=== PATIENT | female | born 1945 | race Caucasian/White ===

== ENCOUNTER → 2018-11-10 | Outpatient (CLI) | payer MEDICARE ==
--- NOTE | 2018-11-10 11:22 | BD ---
EXAMINATION TYPE: Axial Bone Density DATE OF EXAM: 11/10/2018 COMPARISON: NONE CLINICAL HISTORY: Z 78.0 Height: 62.5 Weight: 202 FRAX RISK QUESTIONS: Alcohol (3 or more units per day): no Family History (Parent hip fracture): no Glucocorticoids (More than 3mos): no (Ex: prednisone, prednisolone, methylprednisolone, dexamethasone, and hydrocortisone). History of Fracture in Adulthood: yes, toe Secondary Osteoporosis: 1. Type 1 Diabetes: no 2. Hyperthyroidism: no 3. Menopause before 45: no 4. Malnutrition: no 5. Chronic liver disease: no Rheumatoid Arthritis: no Current Tobacco Use: no RISK FACTORS HISTORY OF: Family History of Osteoporosis: not to knowledge of patient Active: yes Diet low in dairy products/other sources of calcium: no Postmenopausal woman: yes Take estrogen and/or progesterone medications: no Lost more than 2 inches in height since high school: no Frequent falls: no Poor Health: no Hyperparathyroidism: no Adrenal Insufficiency: no MEDICATIONS: Prednisone or other steroids: no Thyroid Medications: no Osteoporosis Medications: no Additional Medications: calcium Additional History: none to note EXAM MEASUREMENTS: Bone mineral densitometry was performed using the [employer] System. Bone mineral density as measured about the Lumbar spine is: ----- L1-L4(G/cm2): 1.077 T Score Values are as follows: ----- L2: -0.9 ----- L3: -0.7 ----- L4: -0.2 ----- L1-L4: -0.9 Bone mineral density not previously done at this facility; done elsewhere Bone mineral density about the R hip (g/cm2): 0.779 Bone mineral density about the L hip (g/cm2): 0.776 T Score values are as follows: -----R Neck: -1.9 -----L Neck: -1.9 -----R Total: -1.3 -----L Total: -0.8 Bone mineral density not previously done at this facility; done elsewhere IMPRESSION: Osteopenia (T Score between -2.5 and -1). There is slightly increased risk of fracture and the patient may be considered for treatment. Re-Screen 2-5 years. NOTE: T-SCORE=SD OF THE YOUNG ADULT MEAN.
--- NOTE | 2018-11-18 08:29 | MM ---
Reason for exam: screening (asymptomatic). Last mammogram was performed 1 year and 9 months ago. History: Patient is postmenopausal. Physical Findings: A clinical breast exam by your physician is recommended on an annual basis and results should be correlated with mammographic findings. MG Screening Mammo w CAD Bilateral CC and MLO view(s) were taken. Prior study comparison: February 09, 2017, mammogram, performed at [place]. November 08, 2015, mammogram, performed at [place]. The breast tissue is heterogeneously dense. This may lower the sensitivity of mammography. No suspicious abnormality. Stable left superior asymmetry at anterior depth on the left back to 2014. No significant changes when compared with prior studies. ASSESSMENT: Benign, BI-RAD 2 RECOMMENDATION: Routine screening mammogram of both breasts in 1 year.
== END | disposition home or self-care (01) ==
LOC: RADMAMWWP 09:07
PROVIDERS: ATTEND Family Medicine
DX: Z12.31 Encounter for screening mammogram for malignant neoplasm of breast (principal); M85.80 Other specified disorders of bone density and structure, unspecified site; Z78.0 Asymptomatic menopausal state
CPT/HCPCS: 77067; 77080

== ENCOUNTER → 2019-02-01 | Outpatient (CLI) | payer MEDICARE ==
--- NOTE | 2019-02-01 11:43 | XR ---
EXAMINATION TYPE: XR chest 2V DATE OF EXAM: 02/01/2019 COMPARISON: NONE HISTORY: Aspiration one week ago with wheeze. TECHNIQUE: Frontal and lateral views of the chest are obtained. FINDINGS: There is no focal air space opacity, pleural effusion, or pneumothorax seen. Some eventrat ion right hemidiaphragm. The cardiac silhouette size is mildly enlarged. The osseous structures are intact. Cholecystectomy clips noted on lateral view. IMPRESSION: Mild cardiomegaly without suspicious acute pulmonary process.
== END | disposition home or self-care (01) ==
LOC: RADXRMAIN 10:39
PROVIDERS: ATTEND Family Medicine
DX: I51.7 Cardiomegaly (principal)
CPT/HCPCS: 71046

== ENCOUNTER → 2019-05-29 | Outpatient (CLI) | payer MEDICARE | END | disposition home or self-care (01) | DX: R13.10 Dysphagia, unspecified (principal) | CPT/HCPCS: 74230 ==

== ENCOUNTER → 2019-09-12 | Day surgery (SDC) | payer MEDICARE ==
[2019-09-07 15:51] VITALS: BMI 36.6
[~2019-09-12] MED LIST: LACTATED RINGERS 1,000 ML IV ONE; LACTATED RINGERS 1,000 ML IV SCH; LIDOCAINE 1% (10MG/ML) FOR IV START INTRADERMA ONE; PROPOFOL 10 MG/ML 20 ML VIAL IV ONE
[2019-09-12 08:13] VITALS: TEMP 97.8
--- NOTE | 2019-09-12 09:13 | P.GSHP ---
History of Present Illness H&P Date: 09/12/19 Chief Complaint: Colon cancer screening Patient here today for colonoscopy. Last colonoscopy 8-10 years ago. History of lymphocytic colitis in the past. No bowel complaints currently. No family history of colon cancer. No history of polyps. Past Medical History Past Medical History: Hyperlipidemia, Osteoarthritis (OA) History of Any Multi-Drug Resistant Organisms: None Reported Past Surgical History: Cholecystectomy, Joint Replacement, Tonsillectomy Additional Past Surgical History / Comment(s): TOTAL RIGHT KNEE, Past Anesthesia/Blood Transfusion Reactions: No Reported Reaction Smoking Status: Former smoker - Past Family History Mother Family Medical History: No Reported History Medications and Allergies Home Medications Medication Instructions Recorded Confirmed Type Atorvastatin [Lipitor] 10 mg PO HS 09/07/19 09/07/19 History Calcium Carbonate/Vitamin D3 1 each PO DAILY 09/07/19 09/07/19 History [Calcium 600-D3 20Mcg(800 Unit)] Multivitamins, Thera [Multivitamin 1 tab PO DAILY 09/07/19 09/07/19 History (formulary)] Omeprazole Magnesium [PriLOSEC OTC] 20 mg PO 1830 09/07/19 09/07/19 History Turmeric Root Extract [Turmeric] 500 mg PO DAILY 09/07/19 09/07/19 History Allergies Allergy/AdvReac Type Severity Reaction Status Date / Time No Known Allergies Allergy Verified 09/07/19 15:33 Surgical - Exam Vital Signs Temp Pulse Resp BP Pulse Ox 97.8 F 78 18 165/80 97 09/12/19 08:12 09/12/19 08:12 09/12/19 08:12 09/12/19 08:12 09/12/19 08:12 Physical exam: General: Well-developed, well-nourished HEENT: Normocephalic, sclerae nonicteric Abdomen: Nontender, nondistended Extremities: No edema Neuro: Alert and oriented Assessment and Plan (1) Colon cancer screening Narrative/Plan: Will proceed with colonoscopy Current Visit: Yes Status: Acute Code(s): Z12.11 - ENCOUNTER FOR SCREENING FOR MALIGNANT NEOPLASM OF COLON SNOMED Code(s): 715406854
[2019-09-12 09:33] VITALS: RESP 16
--- NOTE | 2019-09-12 09:33 | P.PCN ---
Date of Procedure: 09/12/19 Procedure(s) Performed: PREOPERATIVE DIAGNOSIS: Colon cancer screening POSTOPERATIVE DIAGNOSIS: Normal exam PROCEDURE: Colonoscopy ANESTHESIA: MAC SURGEON: Bobby Robb M.D. SPECIMENS: None ENDOSCOPIC PROCEDURE: The patient was placed on the endoscopy table in the left decubitus position. The Olympus colonoscope was inserted into the anus and passed under direct visualization to the base of the cecum. The appendiceal orifice was visualized. From that point the scope was slowly withdrawn inspecti ng all surfaces carefully. There were no neoplastic inflammatory or polypoid lesions throughout the cecum, ascending, transverse, descending, sigmoid and rectum. There was no visible diverticulosis noted. Digital rectal examination was normal. The patient was taken to the recovery room in stable condition per anesthesia guidelines. RECOMMENDATIONS: Alejandro avalos. Follow-up colonoscopy 10 years.
[2019-09-12 09:43] VITALS: BP 131/84; PULSE 72
== END ==
LOC: ORWHC2ENDO 07:51
PROVIDERS: ATTEND Surgery
DX: Z12.11 Encounter for screening for malignant neoplasm of colon (principal); E78.5 Hyperlipidemia, unspecified; K21.9 Gastro-esophageal reflux disease without esophagitis; M19.90 Unspecified osteoarthritis, unspecified site; Z79.899 Other long term (current) drug therapy; Z96.651 Presence of right artificial knee joint; Z90.49 Acquired absence of other specified parts of digestive tract; Z90.89 Acquired absence of other organs; Z87.891 Personal history of nicotine dependence; Z87.19 Personal history of other diseases of the digestive system
CPT/HCPCS: J2704; G0121; 45380

== ENCOUNTER → 2019-11-28 | Outpatient (CLI) | payer MEDICARE ==
--- NOTE | 2019-11-29 11:50 | MM ---
Reason for exam: screening (asymptomatic). Last mammogram was performed 1 year and 1 month ago. History: Patient is postmenopausal. Physical Findings: A clinical breast exam by your physician is recommended on an annual basis and results should be correlated with mammographic findings. MG 3D Screening Mammo W/Cad Bilateral CC and MLO view(s) were taken. Prior study comparison: November 10, 2018, bilateral MG screening mammo w CAD. February 09, 2017, mammogram, performed at [place]. The breast tissue is heterogeneously dense. This may lower the sensitivity of mammography. There is chronic nodularity in the left breast. There is no discrete abnormality. ASSESSMENT: Benign, BI-RAD 2 RECOMMENDATION: Routine screening mammogram of both breasts in 1 year.
== END | disposition home or self-care (01) ==
LOC: RADMAMWWP 07:55
PROVIDERS: ATTEND Family Medicine
DX: Z12.31 Encounter for screening mammogram for malignant neoplasm of breast (principal)
CPT/HCPCS: 77063; 77067

== ENCOUNTER → 2020-12-02 | Outpatient (CLI) | payer MEDICARE ==
--- NOTE | 2020-12-02 12:44 | BD ---
EXAMINATION TYPE: Axial Bone Density DATE OF EXAM: 12/02/2020 COMPARISON: 11/10/2018 CLINICAL HISTORY: Height: 62.5 IN Weight: 198 LBS RISK FACTORS HISTORY OF: Active: YES Postmenopausal woman: AGE 47 Take estrogen and/or progesterone medications: NOT NOW TOOK FOR 15 YEARS MEDICATIONS: Additional Medications: CALCIUM, VIT D, ATORVASTATIN, OMEPRAZOLE EXAM MEASUREMENTS: Bone mineral densitometry was performed using the [employer]. Bone mineral density as measured about the Lumbar spine is: ----- L1-L4(G/cm2): 1.058 T Score Values are as follows: ----- L2: -1.3 ----- L3: -1.0 ----- L4: -0.5 ----- L1-L4: -1.0 Bone mineral density has: Decreased -3.5% since study of: 11/10/2018 Bone mineral density about the R hip (g/cm2): 0.752 Bone mineral density about the L hip (g/cm2): 0.803 T Score values are as follows: -----R Neck: -2.1 -----L Neck: -1.7 -----R Total: -1.3 -----L Total: -0.6 Bone mineral density has: Increased 1.3% since study of: 11/10/2018 IMPRESSION: Osteopenia right hip. NOTE: T-SCORE=SD OF THE YOUNG ADULT MEAN.
--- NOTE | 2020-12-03 09:54 | MM ---
Reason for exam: screening (asymptomatic). Last mammogram was performed 1 year ago. History: Patient is postmenopausal. Took hormonal contraceptives for 20 years. Took estrogen for 10 years. Physical Findings: A clinical breast exam by your physician is recommended on an annual basis and results should be correlated with mammographic findings. MG 3D Screening Mammo W/Cad Bilateral CC and MLO view(s) were taken. Prior study comparison: November 28, 2019, bilateral MG 3d screening mammo w/cad. November 10, 2018, bilateral MG screening mammo w CAD. February 09, 2017, mammogram, performed at [place]. There are scattered fibroglandular densities. There is chronic nodularity in the left breast. There is no discrete abnormality. Benign bilateral axillary lymph nodes redemonstrated. ASSESSMENT: Benign, BI-RAD 2 RECOMMENDATION: Routine screening mammogram of both breasts in 1 year.
== END | disposition home or self-care (01) ==
LOC: RADMAMWWP 09:37
PROVIDERS: ATTEND Family Medicine
DX: Z12.31 Encounter for screening mammogram for malignant neoplasm of breast (principal); M85.851 Other specified disorders of bone density and structure, right thigh; Z78.0 Asymptomatic menopausal state; Z79.3 Long term (current) use of hormonal contraceptives
CPT/HCPCS: 77063; 77067; 77080

== ENCOUNTER 2021-10-20 14:41 | Emergency (ER) | payer MEDICARE ==
[2021-10-20 14:47] VITALS: TEMP 98.4
[2021-10-20] MEDS ORDERED: SODIUM CHLORIDE 0.9% 1,000 ML IV STA (15:51)
[2021-10-20 16:21] LABS: Basophils % (A) 1 %; Eosinophils # (A) 0.2 k/uL (0-0.7); Eosinophils % (A) 5 %; HCT 41.7 % (34.0-46.0); Lymphocytes # (A) 0.7 k/uL (1.0-4.8); Lymphocytes % (A) 18 %; MCH 29.4 pg (25.0-35.0); MCHC 33.7 g/dL (31.0-37.0); MCV 87.1 fL (80.0-100.0); Mean Platelet Volume 7.6; Monocytes # (A) 0.3 k/uL (0-1.0); Monocytes % (A) 8 %; Neutrophils # (A) 2.7 k/uL (1.3-7.7); Neutrophils % (A) 65 %; Platelet Count 207 k/uL (150-450); RBC 4.78 m/uL (3.80-5.40); RDW 13.4 % (11.5-15.5); WBC 4.1 k/uL (3.8-10.6)
[2021-10-20 16:34] LABS: ALT 180 U/L (4-34); AST 123 U/L (14-36); African American GFR (CKD) >90 (>60 ml/min/1.73 sqM); Albumin 4.2 g/dL (3.5-5.0); Alkaline Phosphatase 184 U/L (38-126); Anion Gap 8 mmol/L; Blood Urea Nitrogen 18 mg/dL (7-17); Calcium 9.2 mg/dL (8.4-10.2); Carbon Dioxide 30 mmol/L (22-30); Chloride 100 mmol/L (98-107); Glucose 115 mg/dL (74-99); Magnesium 1.8 mg/dL (1.6-2.3); Non-African American GFR(CKD) 88 (>60 ml/min/1.73 sqM); Potassium 3.8 mmol/L (3.5-5.1); Sodium 138 mmol/L (137-145); Total Bilirubin 0.9 mg/dL (0.2-1.3); Total Protein 6.9 g/dL (6.3-8.2)
--- NOTE | 2021-10-20 17:02 | XR ---
EXAMINATION TYPE: XR chest 2V DATE OF EXAM: 10/20/2021 4:57 PM COMPARISON: Chest radiographs from 02/01/2019 TECHNIQUE: XR chest 2V Frontal and lateral views of the chest. CLINICAL INDICATION:Female, 76 years old with history of Shortness of breath, weakness; FINDINGS: Lungs/Pleura: There is no evidence of pleural effusion, focal consolidation, or pneumothorax. Pulmonary vascularity: Unremarkable. Heart/mediastinum: Cardiomediastinal silhouette is unremarkable. Musculoskeletal: No acute osseous pathology. IMPRESSION: No acute cardiopulmonary disease/process.
--- NOTE | 2021-10-20 17:12 | ED ---
SOB HPI - General Chief Complaint: Shortness of Breath Stated Complaint: SOB Time Seen by Provider: 10/20/21 15:03 Source: patient, RN notes reviewed Mode of arrival: ambulatory Limitations: no limitations - History of Present Illness Initial Comments: This is a 76-year-old female who presents to the emergency department for shortness of breath and generalized weakness. States that for approximately the last 3 days, she has been unable to move around without experiencing extreme fatigue or shortness of breath. Activity such as making the bed or washing strawberries are very difficult for her to do right now. She has also been experiencing night sweats but denies any fevers during the day. Denies any associated chest pain. Also states that she has had no appetite and had an unusual nonspecific abdominal pain last week. States that overall she has never had symptoms like this in the past. Denies any sick contacts. Denies any fevers, chills, sore throat, cough, chest pain, palpitations, abdominal pain, nausea, vomiting, diarrhea, back pain, or headaches. MD Complaint: shortness of breath Onset/Timin -: days(s) Treatments Prior to Arrival: none - Related Data Home Medications Medication Instructions Recorded Confirmed Atorvastatin [Lipitor] 10 mg PO HS 09/07/19 10/20/21 Multivitamins, Thera [Multivitamin 1 tab PO DAILY 09/07/19 10/20/21 (formulary)] Turmeric Root Extract [Turmeric] 500 mg PO DAILY 09/07/19 10/20/21 Calcium Carb/Mag Ox/Zinc Sulf 1 tab PO DAILY 10/20/21 10/20/21 [[id number] 334-134-5 mg Tab] Melatonin 3 mg PO HS 10/20/21 10/20/21 Omeprazole [PriLOSEC] 20 mg PO AC-SUPPER 10/20/21 10/20/21 Phentermine HCl 37.5 mg PO DIRECTED 10/20/21 10/20/21 Allergies Allergy/AdvReac Type Severity Reaction Status Date / Time No Known Allergies Allergy Verified 10/20/21 19:07 Review of Systems ROS Statement: Those systems with pertinent positive or pertinent negative responses have been documented in the HPI. ROS Other: All systems not noted in ROS Statement are negative. Past Medical History Past Medical History: Hyperlipidemia, Osteoarthritis (OA) History of Any Multi-Drug Resistant Organisms: None Reported Past Surgical History: Cholecystectomy, Joint Replacement, Tonsillectomy Additional Past Surgical History / Comment(s): TOTAL RIGHT KNEE, Past Anesthesia/Blood Transfusion Reactions: No Reported Reaction Past Psychological History: No Psychological Hx Reported Past Alcohol Use History: Daily Past Drug Use History: None Reported - Past Family History Mother Family Medical History: No Reported History General Exam Limitations: no limitations General appearance: alert, in no apparent distress Head exam: Present: atraumatic, normocephalic, normal inspection ENT exam: Present: normal exam, mucous membranes moist Neck exam: Present: normal inspection. Absent: tenderness, meningismus, lymphadenopathy Respiratory exam: Present: normal lung sounds bilaterally. Absent: respiratory distress, wheezes, rales, rhonchi, stridor Cardiovascular Exam: Present: regular rate, normal rhythm, normal heart sounds. Absent: systolic murmur, diastolic murmur, rubs, gallop, clicks GI/Abdominal exam: Present: soft, normal bowel sounds. Absent: distended, tenderness, guarding, rebound, rigid Extremities exam: Present: normal inspection, full ROM, normal capillary refill. Absent: tenderness, pedal edema, joint swelling, calf tenderness Neurological exam: Present: alert, oriented X3, CN II-XII intact Psychiatric exam: Present: normal affect, normal mood Skin exam: Present: warm, dry, intact, normal color. Absent: rash Course Vital Signs 10/20/21 10/20/21 10/20/21 14:43 17:33 19:38 Temperature 98.4 F 98.4 F Pulse Rate 99 96 77 Respiratory 18 18 17 Rate Blood Pressure 149/86 162/82 141/90 O2 Sat by Pulse 97 96 97 Oximetry Medical Decision Making - Medical Decision Making This is a 76-year-old female who presents to the emergency department for shortness of breath and fatigue. Chest x-ray revealed no acute cardiopulmonary process. Lab work does reveal a new onset transaminitis. Given the symptoms, a d-dimer was added on, which was found to be elevated at 7.45. Because she had some abnormal abdominal pain a few days ago, she has transaminitis, generalized fatigue, and shortness of breath, computed tomography scan of the abdomen and pelvis was obtained along with a CTA of the chest for PE. CTA of the chest and CT of the abdomen and pelvis both revealed no acute abnormalities. Discussed that she may have a virus causing inflammation to the liver, which can also contribute to an elevated d-dimer. At this point, the workup has not identified any other cause of her symptoms. Advised that she continue to remain well- hydrated and make sure that she eats to keep up her strength, even though she is not having much of an appetite. She will also need to follow up with her primary care provider this week to have her liver enzymes rechecked. Patient currently denies any pain when sitting in bed, and states that she feels stable for discharge home. Return precautions reviewed in depth, the patient is instructed to return to the emergency department with any new, worsening, or concerning symptoms. Patient verbalized understanding. This case was discussed in detail with the attending ED physician. Presentation, findings, and treatment plan discussed in detail as well. - Lab Data Result diagrams: 10/20/21 16:04 10/20/21 16:04 Lab Results 10/20/21 10/20/21 10/20/21 Range/Units 14:51 16:04 16:04 WBC 4.1 (3.8-10.6) k/uL RBC 4.78 (3.80-5.40) m/uL Hgb 14.0 (11.4-16.0) gm/dL Hct 41.7 (34.0-46.0) % MCV 87.1 (80.0-100.0) fL MCH 29.4 (25.0-35.0) pg MCHC 33.7 (31.0-37.0) g/dL RDW 13.4 (11.5-15.5) % Plt Count 207 (150-450) k/uL MPV 7.6 Neutrophils % 65 % Lymphocytes % 18 % Monocytes % 8 % Eosinophils % 5 % Basophils % 1 % Neutrophils # 2.7 (1.3-7.7) k/uL Lymphocytes # 0.7 L (1.0-4.8) k/uL Monocytes # 0.3 (0-1.0) k/uL Eosinophils # 0.2 (0-0.7) k/uL Basophils # 0.0 (0-0.2) k/uL D-Dimer (<0.60) mg/L FEU Sodium 138 (137-145) mmol/L Potassium 3.8 (3.5-5.1) mmol/L Chloride 100 (98-107) mmol/L Carbon Dioxide 30 (22-30) mmol/L Anion Gap 8 mmol/L BUN 18 H (7-17) mg/dL Creatinine 0.61 (0.52-1.04) mg/dL Est GFR (CKD-EPI)AfAm >90 (>60 ml/min/1.73 sqM) Est GFR (CKD-EPI)NonAf 88 (>60 ml/min/1.73 sqM) Glucose 115 H (74-99) mg/dL Calcium 9.2 (8.4-10.2) mg/dL Magnesium 1.8 (1.6-2.3) mg/dL Total Bilirubin 0.9 (0.2-1.3) mg/dL AST 123 H (14-36) U/L ALT 180 H (4-34) U/L Alkaline Phosphatase 184 H (38-126) U/L Troponin I (0.000-0.034) ng/mL NT-Pro-B Natriuret Pep pg/mL Total Protein 6.9 (6.3-8.2) g/dL Albumin 4.2 (3.5-5.0) g/dL TSH 2.040 (0.465-4.680) mIU/L Urine Color Urine Appearance (Clear) Urine pH (5.0-8.0) Ur Specific Flanagan (1.001-1.035) Urine Protein (Negative) Urine Glucose (UA) (Negative) Urine Ketones (Negative) Urine Blood (Negative) Urine Nitrite (Negative) Urine Bilirubin (Negative) Urine Urobilinogen (<2.0) mg/dL Ur Leukocyte Esterase (Negative) Urine RBC (0-5) /hpf Urine WBC (0-5) /hpf Ur Squamous Epith Cells (0-4) /hpf Calcium Oxalate Crystal (None) /hpf Hyaline Casts (0-2) /lpf Urine Mucus (None) /hpf Coronavirus (PCR) Not Detected (Not Detectd) Hepatitis A IgM Ab (Nonreactive) Hep Bs Antigen (Nonreactive) Hep B Core IgM Ab (Nonreactive) Hep C IgG Ab (Nonreactive) Heterophile Antibody (Negative) Influenza Type A RNA (Not Detectd) Influenza Type B (PCR) (Not Detectd) 10/20/21 10/20/21 10/20/21 Range/Units 16:04 16:04 16:04 WBC (3.8-10.6) k/uL RBC (3.80-5.40) m/uL Hgb (11.4-16.0) gm/dL Hct (34.0-46.0) % MCV (80.0-100.0) fL MCH (25.0-35.0) pg MCHC (31.0-37.0) g/dL RDW (11.5-15.5) % Plt Count (150-450) k/uL MPV Neutrophils % % Lymphocytes % % Monocytes % % Eosinophils % % Basophils % % Neutrophils # (1.3-7.7) k/uL Lymphocytes # (1.0-4.8) k/uL Monocytes # (0-1.0) k/uL Eosinophils # (0-0.7) k/uL Basophils # (0-0.2) k/uL D-Dimer (<0.60) mg/L FEU Sodium (137-145) mmol/L Potassium (3.5-5.1) mmol/L Chloride (98-107) mmol/L Carbon Dioxide (22-30) mmol/L Anion Gap mmol/L BUN (7-17) mg/dL Creatinine (0.52-1.04) mg/dL Est GFR (CKD-EPI)AfAm (>60 ml/min/1.73 sqM) Est GFR (CKD-EPI)NonAf (>60 ml/min/1.73 sqM) Glucose (74-99) mg/dL Calcium (8.4-10.2) mg/dL Magnesium (1.6-2.3) mg/dL Total Bilirubin (0.2-1.3) mg/dL AST (14-36) U/L ALT (4-34) U/L Alkaline Phosphatase (38-126) U/L Troponin I <0.012 (0.000-0.034) ng/mL NT-Pro-B Natriuret Pep 43 pg/mL Total Protein (6.3-8.2) g/dL Albumin (3.5-5.0) g/dL TSH (0.465-4.680) mIU/L Urine Color Urine Appearance (Clear) Urine pH (5.0-8.0) Ur Specific Flanagan (1.001-1.035) Urine Protein (Negative) Urine Glucose (UA) (Negative) Urine Ketones (Negative) Urine Blood (Negative) Urine Nitrite (Negative) Urine Bilirubin (Negative) Urine Urobilinogen (<2.0) mg/dL Ur Leukocyte Esterase (Negative) Urine RBC (0-5) /hpf Urine WBC (0-5) /hpf Ur Squamous Epith Cells (0-4) /hpf Calcium Oxalate Crystal (None) /hpf Hyaline Casts (0-2) /lpf Urine Mucus (None) /hpf Coronavirus (PCR) (Not Detectd) Hepatitis A IgM Ab (Nonreactive) Hep Bs Antigen (Nonreactive) Hep B Core IgM Ab (Nonreactive) Hep C IgG Ab (Nonreactive) Heterophile Antibody (Negative) Influenza Type A RNA Not Detected (Not Detectd) Influenza Type B (PCR) Not Detected (Not Detectd) 10/20/21 10/20/21 10/20/21 Range/Units 16:04 16:04 17:33 WBC (3.8-10.6) k/uL RBC (3.80-5.40) m/uL Hgb (11.4-16.0) gm/dL Hct (34.0-46.0) % MCV (80.0-100.0) fL MCH (25.0-35.0) pg MCHC (31.0-37.0) g/dL RDW (11.5-15.5) % Plt Count (150-450) k/uL MPV Neutrophils % % Lymphocytes % % Monocytes % % Eosinophils % % Basophils % % Neutrophils # (1.3-7.7) k/uL Lymphocytes # (1.0-4.8) k/uL Monocytes # (0-1.0) k/uL Eosinophils # (0-0.7) k/uL Basophils # (0-0.2) k/uL D-Dimer (<0.60) mg/L FEU Sodium (137-145) mmol/L Potassium (3.5-5.1) mmol/L Chloride (98-107) mmol/L Carbon Dioxide (22-30) mmol/L Anion Gap mmol/L BUN (7-17) mg/dL Creatinine (0.52-1.04) mg/dL Est GFR (CKD-EPI)AfAm (>60 ml/min/1.73 sqM) Est GFR (CKD-EPI)NonAf (>60 ml/min/1.73 sqM) Glucose (74-99) mg/dL Calcium (8.4-10.2) mg/dL Magnesium (1.6-2.3) mg/dL Total Bilirubin (0.2-1.3) mg/dL AST (14-36) U/L ALT (4-34) U/L Alkaline Phosphatase (38-126) U/L Troponin I (0.000-0.034) ng/mL NT-Pro-B Natriuret Pep pg/mL Total Protein (6.3-8.2) g/dL Albumin (3.5-5.0) g/dL TSH (0.465-4.680) mIU/L Urine Color Yellow Urine Appearance Cloudy H (Clear) Urine pH 5.5 (5.0-8.0) Ur Specific Flanagan 1.029 (1.001-1.035) Urine Protein 1+ H (Negative) Urine Glucose (UA) Negative (Negative) Urine Ketones Negative (Negative) Urine Blood Negative (Negative) Urine Nitrite Negative (Negative) Urine Bilirubin Negative (Negative) Urine Urobilinogen 2.0 (<2.0) mg/dL Ur Leukocyte Esterase Trace H (Negative) Urine RBC 44 H (0-5) /hpf Urine WBC 4 (0-5) /hpf Ur Squamous Epith Cells 7 H (0-4) /hpf Calcium Oxalate Crystal Moderate H (None) /hpf Hyaline Casts 1 (0-2) /lpf Urine Mucus Few H (None) /hpf Coronavirus (PCR) (Not Detectd) Hepatitis A IgM Ab Nonreactive (Nonreactive) Hep Bs Antigen Nonreactive (Nonreactive) Hep B Core IgM Ab Nonreactive (Nonreactive) Hep C IgG Ab Nonreactive (Nonreactive) Heterophile Antibody Negative (Negative) Influenza Type A RNA (Not Detectd) Influenza Type B (PCR) (Not Detectd) 10/20/21 Range/Units Unknown WBC (3.8-10.6) k/uL RBC (3.80-5.40) m/uL Hgb (11.4-16.0) gm/dL Hct (34.0-46.0) % MCV (80.0-100.0) fL MCH (25.0-35.0) pg MCHC (31.0-37.0) g/dL RDW (11.5-15.5) % Plt Count (150-450) k/uL MPV Neutrophils % % Lymphocytes % % Monocytes % % Eosinophils % % Basophils % % Neutrophils # (1.3-7.7) k/uL Lymphocytes # (1.0-4.8) k/uL Monocytes # (0-1.0) k/uL Eosinophils # (0-0.7) k/uL Basophils # (0-0.2) k/uL D-Dimer 7.45 H (<0.60) mg/L FEU Sodium (137-145) mmol/L Potassium (3.5-5.1) mmol/L Chloride (98-107) mmol/L Carbon Dioxide (22-30) mmol/L Anion Gap mmol/L BUN (7-17) mg/dL Creatinine (0.52-1.04) mg/dL Est GFR (CKD-EPI)AfAm (>60 ml/min/1.73 sqM) Est GFR (CKD-EPI)NonAf (>60 ml/min/1.73 sqM) Glucose (74-99) mg/dL Calcium (8.4-10.2) mg/dL Magnesium (1.6-2.3) mg/dL Total Bilirubin (0.2-1.3) mg/dL AST (14-36) U/L ALT (4-34) U/L Alkaline Phosphatase (38-126) U/L Troponin I (0.000-0.034) ng/mL NT-Pro-B Natriuret Pep pg/mL Total Protein (6.3-8.2) g/dL Albumin (3.5-5.0) g/dL TSH (0.465-4.680) mIU/L Urine Color Urine Appearance (Clear) Urine pH (5.0-8.0) Ur Specific Flanagan (1.001-1.035) Urine Protein (Negative) Urine Glucose (UA) (Negative) Urine Ketones (Negative) Urine Blood (Negative) Urine Nitrite (Negative) Urine Bilirubin (Negative) Urine Urobilinogen (<2.0) mg/dL Ur Leukocyte Esterase (Negative) Urine RBC (0-5) /hpf Urine WBC (0-5) /hpf Ur Squamous Epith Cells (0-4) /hpf Calcium Oxalate Crystal (None) /hpf Hyaline Casts (0-2) /lpf Urine Mucus (None) /hpf Coronavirus (PCR) (Not Detectd) Hepatitis A IgM Ab (Nonreactive) Hep Bs Antigen (Nonreactive) Hep B Core IgM Ab (Nonreactive) Hep C IgG Ab (Nonreactive) Heterophile Antibody (Negative) Influenza Type A RNA (Not Detectd) Influenza Type B (PCR) (Not Detectd) - EKG Data EKG Comments: Sinus rhythm. Possible left atrial enlargement. Ventricular rate 99 bpm, MA interval 153 ms, QRS duration 77 ms, QTC 378 ms. - Radiology Data Radiology results: report reviewed, image reviewed Disposition Clinical Impression: Shortness of breath, Fatigue, Transaminitis Disposition: HOME SELF-CARE Instructions (If sedation given, give patient instructions): Viral Syndrome (ED), Fatigue (ED) Additional Instructions: Return to the emergency department with any new, worsening, or concerning symptoms. You will need to have your lab work rechecked to make sure that your liver enzymes have returned to normal. Even though you don't have an appetite, be sure you are continuing to eat and drink plenty of water. Follow up with your primary care provider in 1-2 days. Is patient prescribed a controlled substance at d/c from ED?: No Referrals: Alejandro Lozano DO [Primary Care Provider] - 1-2 days
[2021-10-20 17:45] LABS: Appearance,Urine Cloudy (Clear); Bilirubin,Urine Negative (Negative); Blood,Urine Negative (Negative); Calcium Oxalate Crystals,Urine Moderate /hpf; Color,Urine Yellow; Glucose,Urine (UA) Negative (Negative); Hyaline Casts,Urine 1 /lpf (0-2); Ketones,Urine Negative (Negative); Leukocyte Esterase,Urine Trace (Negative); Mucus,Urine Few /hpf; Nitrite,Urine Negative (Negative); PH, Urine 5.5 (5.0-8.0); Protein,Urine 1+ (Negative); RBC,Urine 44 /hpf (0-5); Specific Gravity,Urine 1.029 (1.001-1.035); Squamous Epithelial Cell,Urine 7 /hpf (0-4); WBC,Urine 4 /hpf (0-5)
--- NOTE | 2021-10-20 19:01 | CT ---
EXAMINATION TYPE: CT chest angio for PE CT DLP: combined DLP 1669 mGycm, Automated exposure control for dose reduction was used. DATE OF EXAM: 10/20/2021 6:29 PM COMPARISON: Chest radiograph same day CLINICAL INDICATION:Female, 76 years old with history of Shortness of breath, elevated d-dimer; SOB, lethargic TECHNIQUE/CONTRAST: CTA scan of the thorax is performed with IV Contrast, patient injected with 100 mL of Isovue 370, pul monary embolism protocol. MIP images are created and reviewed. FINDINGS: Pulmonary Artery: There is no evidence for a filling defect within the pulmonary vasculature to sugge st acute pulmonary embolism. The pulmonary artery is of normal size. Lungs/Pleura: No evidence of focal consolidation, pleural effusion or pneumothorax. Airway: Large airways are patent. Heart: The heart is mildly enlarged for size Vasculature: No evidence of aortic aneurysm. Mediastinum: No gross evidence of adenopathy. Musculoskeletal: No acute osseous abnormalities Soft Tissues: Unremarkable. Lower neck: No significant findings. Upper Abdomen: Diffuse low-attenuation to the liver parenchyma.. IMPRESSION: 1. No evidence of pulmonary embolism. 2. Hepatic steatosis.
--- NOTE | 2021-10-20 19:01 | CT ---
EXAMINATION TYPE: CT abdomen pelvis w con CT DLP: combined DLP 1669 mGycm, Automated exposure control for dose reduction was used. DATE OF EXAM: 10/20/2021 6:29 PM COMPARISON: CTA chest 10/20/2021. CLINICAL INDICATION:Female, 76 years old with history of Abdominal pain, acute, nonlocalized; SOB, le thargic TECHNIQUE: Standard CT of the abdomen and pelvis following the administration of 100 cc of Isovue 3 00 IV contrast material. Coronal and sagittal reformats were performed. FINDINGS: LOWER CHEST: Please refer to dedicated CTA chest the same day for findings. ABDOMEN LIVER: Unremarkable GALLBLADDER AND BILE DUCTS: The gallbladder is surgically absent. No biliary ductal dilatation. PANCREAS: Unremarkable. SPLEEN: Unremarkable. ADRENAL GLANDS: Unremarkable. KIDNEYS AND URETERS: No evidence of hydronephrosis or renal calculus. Kidneys enhance symmetrically w ithout suspicious focal lesion. PELVIS BLADDER: Incompletely distended but grossly unremarkable. REPRODUCTIVE: Unremarkable. ABDOMEN & PELVIS STOMACH AND BOWEL: Stomach and duodenum are unremarkable. No focal wall thickening or surrounding inf lammatory changes. The appendix is not definitely visualized however there is no significant inflamma tory changes within the right lower quadrant. No evidence of bowel obstruction. PERITONEUM: No evidence of pneumoperitoneum or free fluid. VASCULATURE: Moderate atherosclerotic calcifications are present throughout the abdominal aorta and i ts branches. No evidence of aortic aneurysm. MUSCULOSKELETAL: No acute osseous abnormalities. Grade 1 anterolisthesis of L4 on L5 without evidence of pars defect. Degenerative changes of the visualized spine. LYMPH NODES: No gross evidence for lymphadenopathy. SOFT TISSUE/ABDOMINAL WALL: Unremarkable IMPRESSION: No acute abdominal/pelvic process.
[2021-10-20 19:39] VITALS: BP 141/90; PULSE 77; RESP 17
[2021-10-20 23:53] LABS: Hepatitis A Antibody IgM Nonreactive (Nonreactive); Hepatitis B Core IgM Nonreactive (Nonreactive); Hepatitis B Surface Antigen Nonreactive (Nonreactive); Hepatitis C IgG Antibody Nonreactive (Nonreactive)
== END 2021-10-20 19:57 | disposition home or self-care (01) ==
LOC: EC 14:41
DX: R06.02 Shortness of breath (principal); R74.01 Elevation of levels of liver transaminase levels; E78.5 Hyperlipidemia, unspecified; M19.90 Unspecified osteoarthritis, unspecified site; Z20.822 Contact with and (suspected) exposure to COVID-19
CPT/HCPCS: 36415; 93005; 85379; 83880; 80053; 80074; 84443; 83735; 84484; 85025; 86308; 81001; 87502; 87635; 71046; 71275; 74177; 99285; Q9967

== ENCOUNTER → 2021-12-03 | Outpatient (CLI) | payer MEDICARE ==
--- NOTE | 2021-12-03 17:08 | MM ---
Reason for Exam: Screening (asymptomatic). Last screening mammogram was performed 12 month(s) ago. Patient History: Menarche at age 14. First Full-Term at age 27. Postmenopausal. Patient used Estrogen for 10 years. Patient used Hormonal Contraceptives for 20 years. Risk Values: Meghana 5 year model risk: 1.8%. NCI Lifetime model risk: 3.6%. Prior Study Comparison: 02/09/2017 Screening Mammogram, [place]. 11/10/2018 Bilateral Screening Mammogram, [facility]. 11/28/2019 Bilateral Screening Mammogram, [facility]. 12/02/2020 Bilateral Screening Mammogram, [facility]. Tissue Density: There are scattered fibroglandular densities. Findings: Analyzed By CAD. No suspicious groups of microcalcifications, spiculated or lobular masses, architectural distortion or other secondary signs of malignancy are mammographically apparent. Overall Assessment: Benign, BI-RAD 2 Management: Screening Mammogram of both breasts in 1 year. A negative mammogram report should not preclude additional follow up of suspicious palpable abnormalities. Patient should continue monthly self breast exam. A clinical breast exam by your physician is recommended on an annual basis and results should be correlated with mammographic findings. Electronically signed and approved by: Didier Newby D.O. Radiologis
== END | disposition home or self-care (01) ==
LOC: RADMAMWWP 07:10
PROVIDERS: ATTEND Family Medicine
DX: Z12.31 Encounter for screening mammogram for malignant neoplasm of breast (principal); Z78.0 Asymptomatic menopausal state
CPT/HCPCS: 77063; 77067

== ENCOUNTER → 2024-01-18 | Outpatient (CLI) | payer MEDICARE ==
--- NOTE | 2024-01-18 08:22 | MM ---
Reason for Exam: Screening (asymptomatic). Last mammogram was performed 2 year(s) and 2 month(s) ago. Patient History: Menarche at age 14. First Full-Term at age 27. Postmenopausal. Patient used Estrogen for 10 years. Patient used Hormonal Contraceptives for 20 years. Risk Values: Meghana 5 year model risk: 1.7%. NCI Lifetime model risk: 3.1%. Prior Study Comparison: 11/28/2019 Bilateral Screening Mammogram, [facility]. 12/02/2020 Bilateral Screening Mammogram, [facility]. 12/03/2021 Bilateral MG 3D screening mammo w/cad, [facility]. Tissue Density: The breasts are heterogeneously dense, which may obscure small masses. Findings: Analyzed By CAD. There is no suspicious group of microcalcifications. There is a 5 mm nodule in the posterior central left breast. Overall Assessment: Incomplete: need additional imaging evaluation, BI-RAD 0 Management: Diagnostic Mammogram of the left breast. . Patient should continue monthly self-breast exams. A clinical breast exam by your physician is recommended on an annual basis. This exam should not preclude additional follow-up of suspicious palpable abnormalities. Note on Meghana scores and lifetime risk: 1. A Meghana score greater than 3% is considered moderate risk. If this is the case, consider specialist referral to assess eligibility for a risk reducing agent. 2. If overall lifetime risk for the development of breast cancer is 20% or higher, the patient may qualify for future screening with alternating mammogram and breast MRI. [facility], , 01/18/2024 8:15 AM. Electronically signed and approved by: Kj Whalen M.D. Radiologis
--- NOTE | 2024-01-19 21:34 | BD ---
EXAMINATION TYPE: Axial Bone Density DATE OF EXAM: 01/18/2024 CLINICAL HISTORY: 78 years old Female. ICD-10 CODE: ; M81.0 Osteopenia , Z78.0 Height: 62.5 Weight: 204 FRAX RISK QUESTIONS: Alcohol (3 or more units per day): no Family History (Parent hip fracture): no Glucocorticoids (More than 3mos): no (Ex: prednisone, prednisolone, methylprednisolone, dexamethasone, and hydrocortisone). History of Fracture in Adulthood: no Secondary Osteoporosis: 1. Type 1 Diabetes: no 2. Hyperthyroidism: no 3. Menopause before 45: yes 4. Malnutrition: no 5. Chronic liver disease: no Rheumatoid Arthritis: no Current Tobacco Use: no RISK FACTORS HISTORY OF: Surgery to Spine/Hip(right/left)/Wrist (right/left): no EXAM MEASUREMENTS: Bone mineral densitometry was performed using the [employer]. Bone mineral density as measured about the Lumbar spine is: ----- L1-L4(G/cm2): 1.134 T Score Values are as follows: ----- L1: -1.0 ----- L2: -1.1 ----- L3: -0.4 ----- L4: 0.5 ----- L1-L4: -0.4 Z Score Values are as follows: ----- L1: -0.2 ----- L2: -0.2 ----- L3: 0.5 ----- L4: 1.4 ----- L1-L4: 0.5 Bone mineral density has: increased 7.2 % since study of: 12.02.2020 Bone mineral density about the R hip (g/cm2): 0.962 Bone mineral density about the L hip (g/cm2): 0.932 T Score values are as follows: -----R Neck: -2.0 -----L Neck: -1.9 -----R Total: -1.2 -----L Total: -0.6 Z Score values are as follows: -----R Neck: -0.5 -----L Neck: -0.4 -----R Total: 0.1 -----L Total: 0.7 Bone mineral density has: increased 1.1 % since study of: 9.20.2020 FRAX%s: The graph provided illustrates a 13.5 % chance for a major osteoporotic fx and a 3.6% chance for the hips probability for fx in 10 years time. IMPRESSION: Osteopenia (T Score between -2.5 and -1). There is slightly increased risk of fracture and the patient may be considered for treatment. Re-Screen 2-5 years. NOTE: T-SCORE=SD OF THE YOUNG ADULT MEAN. [facility], , 01/19/2024 9:32 PM
== END | disposition home or self-care (01) ==
LOC: RADMAMWWP 07:31
PROVIDERS: ATTEND Family Medicine
DX: Z12.31 Encounter for screening mammogram for malignant neoplasm of breast (principal); M81.0 Age-related osteoporosis without current pathological fracture; Z78.0 Asymptomatic menopausal state; R92.333 Mammographic heterogeneous density, bilateral breasts; N63.20 Unspecified lump in the left breast, unspecified quadrant; M85.89 Other specified disorders of bone density and structure, multiple sites
CPT/HCPCS: 77063; 77067; 77080

== ENCOUNTER → 2024-01-20 | Outpatient (CLI) | payer MEDICARE ==
--- NOTE | 2024-01-20 08:59 | MM ---
Reason for Exam: Additional evaluation requested from abnormal screening. Last screening mammogram was performed less than 1 month ago. Patient History: Menarche at age 14. First Full-Term at age 27. Postmenopausal. Patient used Estrogen for 10 years. Patient used Hormonal Contraceptives for 20 years. Risk Values: Meghana 5 year model risk: 1.7%. NCI Lifetime model risk: 3.1%. Prior Study Comparison: 12/02/2020 Bilateral Screening Mammogram, [facility]. 12/03/2021 Bilateral MG 3D screening mammo w/cad, [facility]. 01/18/2024 Bilateral MG 3D screening mammo w/cad, [facility]. Tissue Density: Left: There are scattered areas of fibroglandular density. Findings: Analyzed By CAD. Pattern is stable. Under compression no persistent nodularity posterior left breast. Mediolateral view normal. Cautionary 6 month follow-up recommended No suspicious groups of microcalcifications, spiculated or lobular masses, architectural distortion or other secondary signs of malignancy are mammographically apparent. Overall Assessment: Probably benign, BI-RAD 3 Management: Diagnostic Mammogram of the left breast in 6 months. A negative mammogram report should not preclude additional follow up of suspicious palpable abnormalities. Patient should continue monthly self breast exam. A clinical breast exam by your physician is recommended on an annual basis and results should be correlated with mammographic findings. Note on Meghana scores and lifetime risk: 1. A Meghana score greater than 3% is considered moderate risk. If this is the case, consider specialist referral to assess eligibility for a risk reducing agent. 2. If overall lifetime risk for the development of breast cancer is 20% or higher, the patient may qualify for future screening with alternating mammogram and breast MRI. [facility], , 01/20/2024 7:38 AM. Electronically signed and approved by: Didier Newby D.O. Radiologis
== END | disposition home or self-care (01) ==
LOC: RADMAMWWP 06:55
PROVIDERS: ATTEND Family Medicine
DX: R92.8 Other abnormal and inconclusive findings on diagnostic imaging of breast (principal); R92.323 Mammographic fibroglandular density, bilateral breasts; Z78.0 Asymptomatic menopausal state; Z92.0 Personal history of contraception
CPT/HCPCS: 77065; G0279; 77061

== ENCOUNTER → 2024-07-20 | Outpatient (CLI) | payer MEDICARE ==
--- NOTE | 2024-07-20 07:36 | MM ---
Reason for Exam: Follow-up at short interval from prior study. Last screening mammogram was performed 6 month(s) ago. Patient History: Menarche at age 14. First Full-Term at age 27. Postmenopausal. Patient used Estrogen for 10 years. Patient used Hormonal Contraceptives for 20 years. Risk Values: Meghana 5 year model risk: 1.7%. NCI Lifetime model risk: 3.1%. Prior Study Comparison: 12/03/2021 Bilateral MG 3D screening mammo w/cad, [facility]. 01/18/2024 Bilateral MG 3D screening mammo w/cad, [facility]. 01/20/2024 Left MG 3D work up w/cad , [facility]. Tissue Density: Left: There are scattered areas of fibroglandular density. Findings: Analyzed By CAD. Area of concern in the left breast posterior nipple line on CC view is not significantly changed likely benign. No new suspicious masses, calcifications or distortions. Overall Assessment: Benign, BI-RAD 2 Management: Screening Mammogram of both breasts in 1 year. Results were given to the patient verbally at the time of exam. Patient should continue monthly self-breast exams. A clinical breast exam by your physician is recommended on an annual basis. This exam should not preclude additional follow-up of suspicious palpable abnormalities. Note on Meghana scores and lifetime risk: 1. A Meghana score greater than 3% is considered moderate risk. If this is the case, consider specialist referral to assess eligibility for a risk reducing agent. 2. If overall lifetime risk for the development of breast cancer is 20% or higher, the patient may qualify for future screening with alternating mammogram and breast MRI. [facility], , 07/20/2024 7:33 AM. Electronically signed and approved by: Mir Jarrett DO
== END | disposition home or self-care (01) ==
LOC: RADMAMWWP 06:55
PROVIDERS: ATTEND Family Medicine
DX: R92.8 Other abnormal and inconclusive findings on diagnostic imaging of breast (principal); R92.322 Mammographic fibroglandular density, left breast; Z78.0 Asymptomatic menopausal state; Z80.3 Family history of malignant neoplasm of breast
CPT/HCPCS: 77061; 77065